=== PATIENT | female | born 1960 | race Caucasian/White ===

== ENCOUNTER 2016-05-19 22:47 | Emergency (ER) | payer MEDICARE, OTHER ==
[2016-05-19] MEDS ORDERED: ALBUTEROL 0.083% 2.5 MG/3 ML VIAL.NEB INHALATION ONE (23:07)
[2016-05-19] MEDS ORDERED: LORazepam 1 MG TABLET ONE (23:07)
[2016-05-19] MEDS ORDERED: oxyCODONE/APAP 5/325 MG PREPAC 1 TAB TABLET PO ONE (23:56)
[2016-05-20] MEDS ORDERED: ONDANSETRON ODT 8 MG TAB.RAPDIS PO ONE (00:01)
--- NOTE | 2016-05-20 01:35 | ER NURSING DOCUMENTATION ---
Nurse's Notes [facility] Name:Stefany Mckenna Age:55 yrs Sex:Female :1960 Arrival Date:05/19/2016 Time:22:47 Bed4 Private MD:Damari Pettit Diagnosis:Cough Presentation: 05/19 22:50 Presenting complaint: Patient states: Fever, cough x one day. Transition of care: Home. [facility] 22:50 Method Of Arrival: Walk In [facility] 22:50 Acuity: NICHO 3 [facility] Triage Assessment: 23:00 General: Appears distressed, uncomfortable, Behavior is agitated, anxious, combative, mk4 uncooperative. Pain: Denies pain. EENT: No deficits noted. Neuro: No deficits noted. Cardiovascular: Rhythm is sinus tachycardia. Respiratory: Airway is patent Trachea midline Respiratory effort is even, unlabored, Respiratory pattern is regular, symmetrical, Breath sounds are clear Reports shortness of breath cough that is labored breathing pain with cough pain with respiration Onset: The symptoms/episode began/occurred yesterday, the patient has mild shortness of breath. GI: No deficits noted. : No deficits noted. Derm: No deficits noted. Musculoskeletal: No deficits noted. Historical: - Allergies: IODINEIODINE CONTAINING; Vicodin; - Home Meds: 1. Flagyl 250 mg oral tab 1 tab every 8 hours 2. lisinopril Oral once daily 3. Norvasc Oral Unknown 4. Synthroid Oral Unknown - PMHx: HYPERTENSION; DIVERTICULITIS; - PSHx: KNEE SURGERY; THYROIDECTOMY; APPENDECTOMY; - Tetanus: < 10 years. - Ebola Screening: : No symptoms or risks identified at this time. . - Immunization history: Pneumococcal vaccine status is unknown, Flu Vaccine < 1 year Flu Vaccine None. - Social history: Smoking status: Patient states was never smoker of tobacco. Screenin:00 Infectious Disease Risk None. Abuse screen: denies. [facility] 05/20 01:32 Nutritional screening: No deficits noted. [facility] Assessment: 05/19 23:00 See Triage Assessment done by same RN. [facility] Vital Signs: 23:00 BP 159 / 85; Pulse 147; Resp 22; Temp 98.4; Pulse Ox 93% on R/A; 4 05/20 00:05 BP 138 / 81; Pulse 98; Resp 17; Pulse Ox 97% on R/A; Pain 4/10; mk4 01:00 BP 142 / 78; Pulse 96; Resp 17; Pulse Ox 94% on R/A; Pain 10/10; mk4 01:31 BP 145 / 85; Pulse 87; Resp 19; Temp 97.5; Pulse Ox 95% ; Pain 2/10; mk4 02 23:00 PT very anxious, hyperventilating mk4 ED Course: 22:48 Patient arrived in ED. em2 22:48 Damari Pettit MD is Private Physician. em2 22:50 On arrival Pt. very agitated and uncooperative. States " I'm very sick, you should know mk4 that " but refuses to state symptoms. Spouse described fever and cough x one day. Pt. throwing herself off bed and then pacing, being belligerent to RN, hospital tube room supervisor and rfid technician. After support given she describes ongoing [place] for breathing problems at night since 2011. She requests that MD to give her " a shot in the neck and call her automatic serging machine operator ". MD offered neck and chest x-ray and CT, diagnostic swabs, blood work. She refused all interventions and diagnostics and requested an albuterol neb. The nebulizer was given but she refused to breath in stating " this won't help, you people don't know what you are doing. The dumb doctor doesn't even know what airborne is". Ativan offered. 22:57 Nathan Kent MD is Attending Physician. tl1 23:00 Family accompanied patient. mk4 23:00 Valuables Remains with patient. Pulse Ox - RN Monitoring Only NIBP On - RN Monitoring mk4 Only. 23:16 Cassie Scruggs is Primary Nurse. mk4 23:17 Triage completed. mk4 23:22 Allergy Band Placed Arm band placed on Bed in low position Call Light in Reach Gowned mk4 Side rails up x2 Emesis basin given. 23:30 Continues to yell, cry and be belligerent to MD and RN. Appears to be in a manic state. mk4 Conversation with her about how we can care for her tonight. She is still refusing any interventions and diagnostics. Behavior is hysterical and requests are nonsensical. Stating "everyone has lost my records, they say I have whooping cough and I don't. They say I have kidney stones and I don't. I have been to this ER 11 times and you are all liars ". Spouse denies any psychological issues and stated this is her normal behavior. She continues to be stable with occasional loose cough. 23:30 States increase in body aches. Requests " Percocet is the only thing I can take". mk4 Conversation about positioning at night and possibility of getting a sleep study. Stated " you are all crazy and your going to kill me". MD in room informing her of DX of " bronchitis " tonight and will be DC to home with FU with PCP and automatic serging machine operator for chronic throat and neck issues. Pt. refusing this DX and refusing to leave ED. 05/20 00:14 Damari Pettit MD is Referral Physician. tl1 01:20 Refusing to leave ED. Stating " you people have done nothing for me tonight. You are mk4 all stupid". Offered again diagnostic testing and additional interventions in which she refused. Spouse understands DX and our care tonchristy and stated " I am gratefull for your care tonight, Thanks for your patience". Administered Medications: 05/19 23:23 Drug: DuoNeb (Albuterol 2.5 mg, Atrovent 0.5 mg); 3 ml; Route: Nebulizer; Infused Over: mk4 5 mins; 05/20 01:27 Follow up: Response: No adverse reaction 4 05/19 23:24 Drug: Ativan 2 mg; Route: PO; mk4 05/20 01:27 Follow up: Response: No adverse reaction; Anxiety decreased 4 05/19 23:57 Drug: Percocet Tablet (5 mg-325 mg) 2 tabs; Route: PO; mk4 05/20 01:27 Follow up: Response: No adverse reaction; Pain is decreased mk4 05/19 23:57 Drug: Zofran 8 mg; Route: PO; mk4 05/20 01:28 Follow up: Response: No adverse reaction; Nausea is decreased mk4 01:30 Drug: Percocet Tablet (5 mg-325 mg) 6 tabs; Route: PO; mk4 Outcome: 00:14 Discharge ordered by MD. tl1 01:31 Discharged to home ambulatory. mk4 :31 Condition: good :31 Discharge Assessment: Patient awake, alert and oriented x 3. No cognitive and/or functional deficits noted. Patient verbalized understanding of disposition instructions. 01:31 Discharge instructions given to patient, Instructed on discharge instructions, follow up and referral plans. Demonstrated understanding of 01:33 Patient left the ED. mk4 Signatures: Elmer-pete, Faby-pete em2 Cassie Scruggs mk4 Nathan Kent MD MD tl1 alexandro lo
--- NOTE | 2016-05-20 01:35 | ER PHYSICIAN DOCUMENTATION ---
Physician Documentation [facility] Name:Stefany Mckenna Age:55 yrs Sex:Female :1960 Arrival Date:05/19/2016 Time:22:47 Bed4 Private MD:Damari Pettit ED, Tom Disposition: 05/20 02:00 Critical Care: not applicable. Chart complete. tl1 Disposition: 05/20/16 00:14 Discharged to Home/Self Care. Impression: Cough. - Condition is Good. - Discharge Instructions: BRONCHITIS, No Abx (Adult), COUGH, Chronic, Uncertain Cause, (Adult). - Medical Reconciliation form form. - Follow up: Damari Pettit MD; When: 2 - 3 days; Reason: Recheck today's complaints, Continuance of care. - Problem is an ongoing problem. - Symptoms have improved. HPI: 05/19 22:55 This 55 yrs old Female presents to ER with complaints of Breathing Difficulty.tl1 22:55 The patient has shortness of breath at rest. The patient has experienced similar tl1 episodes in the past, several times. Over the course of the day she has been increasingly anxious with tightness in her throat. She is an extremely difficult and uncooperative historian with a very tangential and non linear timeframe. Albuterol and ativan have reportedly helped in the future. She advises that we should ask one of the ER docs that knows her to come in to treat her.. 22:56 She refuses to answer questions or answers questions that were not asked, mostly tl1 complaining about the doctors who "messed up my throat", during thyroidectomy surgery several years ago. She insists, that we consult her old records here, which she says are numerous ( the only records I could find were about diverticulitis (4) ), and insists I call her solutions development analyst ( it is near midnight on Friday), because she does not want to answer questions she has been asked in the remote past. Multiple attempts by myself, and Cassie, his nurse rakesh, to understand and clarify her symptoms, were futile.. Historical: - Allergies: IODINEIODINE CONTAINING; Vicodin; - Home Meds: 1. Flagyl 250 mg oral tab 1 tab every 8 hours 2. lisinopril Oral once daily 3. Norvasc Oral Unknown 4. Synthroid Oral Unknown - PMHx: HYPERTENSION; DIVERTICULITIS; - PSHx: KNEE SURGERY; THYROIDECTOMY; APPENDECTOMY; - Tetanus: < 10 years. - Ebola Screening: : No symptoms or risks identified at this time. . - Immunization history: Pneumococcal vaccine status is unknown, Flu Vaccine < 1 year Flu Vaccine None. - Social history: Smoking status: Patient states was never smoker of tobacco. ROS: 22:56 ENT: Positive for sore throat, a sense of her throat closing at night when she has tl1 been trying to sleep.. 22:56 Respiratory: Positive for cough, wheezing. Exam: 22:56 Head/Face: Normocephalic, atraumatic. tl1 22:56 Eyes: Pupils equal round and reactive to light, extra-ocular motions intact. Lids and tl1 lashes normal. Conjunctiva and sclera are non-icteric and not injected. Cornea within normal limits. Periorbital areas with no swelling, redness, or edema. 22:56 Constitutional: The patient appears alert, awake, non-toxic, anxious, restless, uncomfortable. 22:56 ENT: Mouth: is normal, Oral mucosa: pink and intact, moist, Posterior pharynx: Airway: normal, no evidence of obstruction, Tonsils: are normal in appearance, Uvula: normal, swelling, is not appreciated, erythema, that is mild, exudate, is not appreciated, peritonsillar mass, is not appreciated, Voice: is normal. 22:56 Neck: External neck: is normal, Trachea: is midline with no obvious abnormalities, ROM/movement: is normal, Lymph nodes: no appreciated lymphadenopathy. 22:56 Cardiovascular: Rate: normal, Rhythm: regular, Heart sounds: normal, Edema: is not appreciated, JVD: is not appreciated. 22:56 Respiratory: the patient does not display signs of respiratory distress, Respirations: normal, Breath sounds: are normal, stridor, is not appreciated. 22:56 Abdomen/GI: Palpation: abdomen is soft and non-tender. 22:56 Skin: Exam negative for acute changes. 22:56 Neuro: grossly normal. Vital Signs: 23:00 BP 159 / 85; Pulse 147; Resp 22; Temp 98.4; Pulse Ox 93% on R/A; mk4 02/20 00:05 BP 138 / 81; Pulse 98; Resp 17; Pulse Ox 97% on R/A; Pain 4/10; mk4 01:00 BP 142 / 78; Pulse 96; Resp 17; Pulse Ox 94% on R/A; Pain 10/10; mk4 01:31 BP 145 / 85; Pulse 87; Resp 19; Temp 97.5; Pulse Ox 95% ; Pain 2/10; mk4 05/19 23:00 PT very anxious, hyperventilating mk4 MDM: 22:57 Patient medically screened. tl1 05/20 00:30 Differential diagnosis: Anxiety Reaction Psychogenic pharyngitis. Antibiotic tl1 administration: Not indicated. Data reviewed: vital signs, nurses notes, old medical records, and as a result, I will discharge patient. Data interpreted: telemetry monitor: Pulse oximetry:. ED course: She was uncooperative with her throat exam. She refused my offer of a CT of her neck or chest x-ray. She was observed for several hours and had no airway difficulty. Since she was oppositional with everything we attempted to help her, and unwilling to cooperate with a history, and since she did not appear to have any acute airway problem, she was discharged from the ED.. Dispensed Medications: 05/19 23:23 Drug: DuoNeb (Albuterol 2.5 mg, Atrovent 0.5 mg); 3 ml; Route: Nebulizer; Infused Over: mk4 5 mins; 05/20 01:27 Follow up: Response: No adverse reaction 4 05/19 23:24 Drug: Ativan 2 mg; Route: PO; mk4 05/20 01:27 Follow up: Response: No adverse reaction; Anxiety decreased 4 05/19 23:57 Drug: Percocet Tablet (5 mg-325 mg) 2 tabs; Route: PO; mk4 05/20 01:27 Follow up: Response: No adverse reaction; Pain is decreased 4 05/19 23:57 Drug: Zofran 8 mg; Route: PO; mk4 05/20 01:28 Follow up: Response: No adverse reaction; Nausea is decreased mk4 01:30 Drug: Percocet Tablet (5 mg-325 mg) 6 tabs; Route: PO; mk4 Signatures: Cassie Scruggs 4 Nathan Kent MD MD tl1
== END 2016-05-20 01:33 | disposition home or self-care (01) ==
LOC: ER 22:47
DX: R05 Cough (principal); R06.02 Shortness of breath; J02.9 Acute pharyngitis, unspecified; R06.2 Wheezing; F41.9 Anxiety disorder, unspecified; R06.4 Hyperventilation; I10 Essential (primary) hypertension; Z79.899 Other long term (current) drug therapy
CPT/HCPCS: 94640; 99283; 99285; J7613